=== PATIENT | female | born 1985 | race Caucasian/White ===

== ENCOUNTER 2017-05-15 17:55 | Emergency (ER) | payer OTHER ==
[~2017-05-15] VITALS: Ht 165.1 cm; Wt 72.6 kg
[~2017-05-15 17:55] MED LIST: FERR325T50 PO; PRENTAB28 PO
[2017-05-15 18:17] VITALS: BP 111/75
[2017-05-15] MEDS ORDERED: LIDOCAINE 1% HCL (LOCAL ANESTH.) INJ 20ML MDV ONE (20:26)
[2017-05-15] MEDS ORDERED: cefTRIAXone SOD 1,000 MG VL IM ONE (20:30)
[2017-05-15] MEDS ORDERED: IBUPROFEN 800 MG TAB PO ONE ×2 (22:41→22:45)
== END 2017-05-15 23:00 | disposition home or self-care (01) ==
LOC: ER 18:00
DX: S61.252A Open bite of right middle finger without damage to nail, initial encounter (principal); Z88.2 Allergy status to sulfonamides; Y04.1XXA Assault by human bite, initial encounter; Y93.89 Activity, other specified; Y92.89 Other specified places as the place of occurrence of the external cause; Y99.8 Other external cause status
CPT/HCPCS: 73140; 96372; 99284; J0696; J2001